=== PATIENT | male | born 1965 | race Caucasian/White ===

== ENCOUNTER 2024-02-16 16:40 | Inpatient (IN) | payer MEDICARE, MEDICAID ==
[~2024-02-16] VITALS: Ht 165.1 cm; Wt 84.6 kg
[~2024-02-16 16:40] MED LIST: SEVE800T8 MT
[2024-02-16 17:30] VITALS: BP 125/49; PULSE 73; RESP 17; TEMP 98.1
[2024-02-16] MEDS ORDERED: MAGNESIUM HYDROXIDE 400MG/5ML 30ML UDC PO PRN (18:30)
[2024-02-16] MEDS ORDERED: CLONIDINE 0.1MG TABLET PO PRN (18:30)
[2024-02-16] MEDS ORDERED: MAGNESIUM/ALUMINUM HYDROXIDE/SIMETHICONE 30ML UDC PO PRN (18:30)
[2024-02-16] MEDS ORDERED: NALOXONE HCL 0.4MG/ML VIAL IV PRN (19:30)
[2024-02-16] MEDS: HYDROCODONE/ACETAMINOPHEN 10/325MG TABLET PO PRN (19:47)
[2024-02-16 20:00] VITALS: BP 146/58; PULSE 72; PULSE 75; RESP 17; RESP 18; TEMP 100.4; TEMP 100.8
[2024-02-16] MEDS: BLOOD SUGAR DIAGNOSTIC STRIP TEST SCH (20:11)
[2024-02-16] MEDS: AMLODIPINE 2.5MG TABLET PO SCH (21:05)
[2024-02-16] MEDS: ATORVASTATIN CALCIUM 40MG TABLET PO SCH (21:05)
[2024-02-16] MEDS: INSULIN GLARGINE 100 UNITS/ML SUBCUT SCH (21:23)
[2024-02-16] MEDS: INSULIN LISPRO 100 UNITS/ML SUBCUT SCH (21:23)
[2024-02-16] MEDS: PIPERACILLIN/TAZO 3.375G/50ML 50 ML IV SCH (21:54)
[2024-02-16] MEDS: GUAIFENESIN-DM 200MG-20MG/10ML UDC PO PRN (23:33)
[2024-02-17] VITALS (7 sets, daily range): BP systolic 144–162; BP diastolic 54–75; PULSE 78–84; RESP 16–20; TEMP 96.9–99.1
[2024-02-17] MEDS: ACETAMINOPHEN 325MG TABLET PO PRN (02:06)
[2024-02-17] MEDS: ONDANSETRON HCL 4MG/2ML INJ IV PRN (06:37)
[2024-02-17 07:25] LABS: BASOPHILS % 0.7 % (0.0-2.0); HEMATOCRIT. 21.9 % (42.0-52.0); HEMOGLOBIN. 7.2 g/dL (14.0-18.0); LYMPHOCYTES % 9.1 % (20.0-50.0); MEAN CORPUSCULAR HEMOGLOBIN 28.3 pg (28.0-32.0); MEAN CORPUSCULAR VOLUME 85.6 fL (80.0-94.0); MEAN PLATELET VOLUME 7.5 fl (7.4-10.4); MONOCYTES % 5.6 % (2.0-8.0); NEUTROPHILS % 79.6 % (40.0-76.0); PLATELET 229 x1000/uL (130-400); RED BLOOD CELL COUNT 2.56 mill/uL (4.7-6.1); RED CELL DISTRIBUTION WIDTH 14.9 % (11.6-14.6); WHITE BLOOD COUNT 11.6 x1000/uL (4.5-11.0)
[2024-02-17 07:45] LABS: ALANINE AMINOTRANSFERASE 11 IU/L (10-49); ALBUMIN 3.4 g/dL (3.2-4.8); ASPARTATE AMINOTRANSFERASE 28 IU/L (<34); BILIRUBIN TOTAL 0.4 mg/dL (0.1-1.0); CALCIUM 8.4 mg/dL (8.7-10.4); CARBON DIOXIDE 25 mEq/L (21-32); CHLORIDE 91 mEq/L (98-107); GLUCOSE 127 mg/dL (70-105); POTASSIUM 4.9 mEq/L (3.5-5.1); PROTEIN TOTAL 5.8 g/dL (6.0-8.3); SODIUM 130 mEq/L (136-145); UREA NITROGEN BLOOD 51 mg/dL (9-23)
[2024-02-17 07:48] LABS: CREATININE 9.7 mg/dL (0.6-1.3)
[2024-02-17] MEDS: DOCUSATE SODIUM 100MG CAPSULE PO SCH (09:18)
[2024-02-17] MEDS: CALCIUM ACETATE 667MG CAPSULE PO SCH (09:18)
[2024-02-17] MEDS: FINASTERIDE 5MG TABLET PO SCH (09:19)
[2024-02-17] MEDS: LINAGLIPTIN 5MG TABLET PO SCH (09:19)
[2024-02-17] MEDS: FOLIC ACID/VITAMIN B COMP W-C TABLET PO SCH (09:19)
[2024-02-17] MEDS: LACTULOSE 20G/30ML UDC PO SCH (13:55)
[2024-02-17] MEDS: FAMOTIDINE 20MG TABLET PO SCH (21:00)
[2024-02-17] MEDS: HYDROCODONE/ACETAMINOPHEN 5/325MG TABLET PO PRN (22:29)
[2024-02-17] MEDS: EPOETIN ALFA 4000UNITS/ML VIAL SUBCUT SCH (22:32)
[2024-02-18 06:07] LABS: AMMONIA < 17 uMol/L (<32)
[2024-02-18 08:00] VITALS: BP 146/63; PULSE 91; RESP 17; TEMP 100
[2024-02-18 08:13] LABS: BASOPHILS % 0.7 % (0.0-2.0); EOSINOPHILS % 4.9 % (0.0-5.0); HEMATOCRIT. 23.1 % (42.0-52.0); HEMOGLOBIN. 7.7 g/dL (14.0-18.0); LYMPHOCYTES % 10.7 % (20.0-50.0); MEAN CORPUSCULAR HEMOGLOBIN 28.2 pg (28.0-32.0); MEAN CORPUSCULAR HGB CONC 33.1 g/dL (31.0-37.0); MEAN CORPUSCULAR VOLUME 85.2 fL (80.0-94.0); MEAN PLATELET VOLUME 7.3 fl (7.4-10.4); MONOCYTES % 5.6 % (2.0-8.0); NEUTROPHILS % 78.1 % (40.0-76.0); PLATELET 224 x1000/uL (130-400); RED BLOOD CELL COUNT 2.71 mill/uL (4.7-6.1); RED CELL DISTRIBUTION WIDTH 14.9 % (11.6-14.6)
[2024-02-18 08:44] LABS: ALANINE AMINOTRANSFERASE 10 IU/L (10-49); ALBUMIN 3.5 g/dL (3.2-4.8); ASPARTATE AMINOTRANSFERASE 36 IU/L (<34); BILIRUBIN TOTAL 0.4 mg/dL (0.1-1.0); CALCIUM 8.9 mg/dL (8.7-10.4); CARBON DIOXIDE 25 mEq/L (21-32); CHLORIDE 95 mEq/L (98-107); GLUCOSE 69 mg/dL (70-105); IRON 19 ug/dL (65-175); POTASSIUM 4.2 mEq/L (3.5-5.1); PROTEIN TOTAL 5.9 g/dL (6.0-8.3); SODIUM 134 mEq/L (136-145); THYROID STIMULATING HORMONE 2.84 uIU/mL (0.55-4.78); TOTAL IRON BINDING CAPACITY 354 ug/dl (250-425); UREA NITROGEN BLOOD 41 mg/dL (9-23)
[2024-02-18 08:49] LABS: CREATININE 8.8 mg/dL (0.6-1.3)
[2024-02-18 09:04] LABS: FERRITIN 1229 ng/mL (22-322); FOLIC ACID (FOLATE) SERUM 19.88 ng/mL (>5.38); VITAMIN B12 SERUM 1943 pg/mL (211-911)
[2024-02-18] MEDS: HYDROCORTISONE 1% CREAM 30GM TOP SCH (14:51)
[2024-02-18] MEDS: VANCOMYCIN 500MG/100ML IV NR (14:52)
[2024-02-18 19:46] VITALS: BP 151/62; PULSE 79; RESP 20; TEMP 97.9
[2024-02-18 22:00] VITALS: BP 152/73; PULSE 76
[2024-02-18 22:30] VITALS: BP 157/70; PULSE 79
[2024-02-18 22:32] VITALS: BP 157/70; PULSE 79; RESP 16; TEMP 98
[2024-02-19 07:58] VITALS: BP 145/58; PULSE 74; RESP 18; TEMP 98.4
[2024-02-19] MEDS: ERGOCALCIFEROL 50000UNITS CAPSULE PO SCH (16:00)
[2024-02-19 20:00] VITALS: BP 153/35; PULSE 77; RESP 18; TEMP 97.7
[2024-02-20] VITALS (10 sets, daily range): BP systolic 138–164; BP diastolic 46–73; PULSE 76–82; RESP 16–17; TEMP 97.3–97.8
[2024-02-20 05:48] LABS: BASOPHILS % 0.5 % (0.0-2.0); EOSINOPHILS % 7.7 % (0.0-5.0); HEMATOCRIT. 22.7 % (42.0-52.0); HEMOGLOBIN. 7.5 g/dL (14.0-18.0); LYMPHOCYTES % 13.1 % (20.0-50.0); MEAN CORPUSCULAR HEMOGLOBIN 28.8 pg (28.0-32.0); MEAN CORPUSCULAR HGB CONC 33.1 g/dL (31.0-37.0); MEAN CORPUSCULAR VOLUME 87.2 fL (80.0-94.0); MEAN PLATELET VOLUME 7.1 fl (7.4-10.4); NEUTROPHILS % 70.7 % (40.0-76.0); PLATELET 224 x1000/uL (130-400); RED BLOOD CELL COUNT 2.61 mill/uL (4.7-6.1); RED CELL DISTRIBUTION WIDTH 15.3 % (11.6-14.6); WHITE BLOOD COUNT 11.5 x1000/uL (4.5-11.0)
[2024-02-20 06:05] LABS: CALCIUM 8.6 mg/dL (8.7-10.4); POTASSIUM 4.4 mEq/L (3.5-5.1)
[2024-02-20 07:13] LABS: CREATININE 10.8 mg/dL (0.6-1.3)
[2024-02-20] MEDS: LOPERAMIDE HCL 2MG CAPSULE PO PRN (10:27)
[2024-02-20] MEDS: DEXTROSE 50% WATER 50ML SYRINGE IV PRN (11:44)
[2024-02-20] MEDS: AMLODIPINE 5MG TABLET PO SCH (21:50)
[2024-02-21 08:00] VITALS: BP 139/67; PULSE 83; RESP 20; TEMP 98.4
[2024-02-21 20:00] VITALS: BP 159/69; PULSE 83; RESP 20; TEMP 97.6
[2024-02-21] MEDS: INSULIN GLARGINE 100 UNITS/ML SUBCUT SCH (22:15)
[2024-02-22] VITALS (10 sets, daily range): BP systolic 139–167; BP diastolic 51–78; PULSE 74–89; RESP 18–22; TEMP 97.4–98.4
[2024-02-22] MEDS: HYDROCODONE/ACETAMINOPHEN 5/325MG TABLET PO NR (06:26)
[2024-02-22 08:34] LABS: BASOPHILS % 0.8 % (0.0-2.0); EOSINOPHILS % 7.2 % (0.0-5.0); HEMATOCRIT. 22.9 % (42.0-52.0); HEMOGLOBIN. 7.5 g/dL (14.0-18.0); LYMPHOCYTES % 14.6 % (20.0-50.0); MEAN CORPUSCULAR HEMOGLOBIN 28.2 pg (28.0-32.0); MEAN CORPUSCULAR VOLUME 85.5 fL (80.0-94.0); NEUTROPHILS % 69.4 % (40.0-76.0); PLATELET 191 x1000/uL (130-400); RED BLOOD CELL COUNT 2.68 mill/uL (4.7-6.1); WHITE BLOOD COUNT 10.9 x1000/uL (4.5-11.0)
[2024-02-22 08:49] LABS: CALCIUM 8.8 mg/dL (8.7-10.4); POTASSIUM 4.6 mEq/L (3.5-5.1)
[2024-02-22 08:51] LABS: CREATININE 10.5 mg/dL (0.6-1.3)
[2024-02-22] MEDS: VANCOMYCIN 500MG/100ML IV NR (17:58)
[2024-02-22] MEDS ORDERED: NALOXONE HCL 0.4MG/ML VIAL IV PRN (21:15)
[2024-02-22] MEDS: HYDROCODONE/ACETAMINOPHEN 5/325MG TABLET PO PRN (21:25)
[2024-02-23 08:00] VITALS: BP 140/60; PULSE 91; RESP 20; TEMP 98
[2024-02-23 12:00] VITALS: BP 130/51; PULSE 82; RESP 18; TEMP 98.8
[2024-02-24] VITALS (11 sets, daily range): BP systolic 127–161; BP diastolic 58–79; PULSE 78–85; RESP 16–22; TEMP 97.9–98.6
[2024-02-24 06:02] LABS: BASOPHILS % 0.8 % (0.0-2.0); EOSINOPHILS % 7.1 % (0.0-5.0); HEMATOCRIT. 23.5 % (42.0-52.0); HEMOGLOBIN. 7.8 g/dL (14.0-18.0); LYMPHOCYTES % 15.3 % (20.0-50.0); MEAN CORPUSCULAR HEMOGLOBIN 28.6 pg (28.0-32.0); MEAN CORPUSCULAR HGB CONC 33.1 g/dL (31.0-37.0); MEAN CORPUSCULAR VOLUME 86.4 fL (80.0-94.0); MONOCYTES % 7.1 % (2.0-8.0); NEUTROPHILS % 69.7 % (40.0-76.0); PLATELET 218 x1000/uL (130-400); RED BLOOD CELL COUNT 2.72 mill/uL (4.7-6.1); RED CELL DISTRIBUTION WIDTH 16.7 % (11.6-14.6); WHITE BLOOD COUNT 12.2 x1000/uL (4.5-11.0)
[2024-02-24 08:17] LABS: POTASSIUM 4.1 mEq/L (3.5-5.1)
[2024-02-24 08:41] LABS: CREATININE 9.6 mg/dL (0.6-1.3)
[2024-02-24] MEDS: INSULIN GLARGINE 100 UNITS/ML SUBCUT SCH (22:00)
[2024-02-25] MEDS: VANCOMYCIN 750MG/150ML IV NR (03:00)
[2024-02-25 06:52] LABS: BASOPHILS % 1.2 % (0.0-2.0); EOSINOPHILS % 7.4 % (0.0-5.0); HEMOGLOBIN. 8.6 g/dL (14.0-18.0); LYMPHOCYTES % 15.7 % (20.0-50.0); MEAN CORPUSCULAR HEMOGLOBIN 29.7 pg (28.0-32.0); MEAN CORPUSCULAR HGB CONC 34.2 g/dL (31.0-37.0); MEAN CORPUSCULAR VOLUME 86.9 fL (80.0-94.0); MONOCYTES % 8.1 % (2.0-8.0); NEUTROPHILS % 67.6 % (40.0-76.0); PLATELET 193 x1000/uL (130-400); RED BLOOD CELL COUNT 2.88 mill/uL (4.7-6.1); WHITE BLOOD COUNT 8.9 x1000/uL (4.5-11.0)
[2024-02-25 07:08] LABS: CALCIUM 9.2 mg/dL (8.7-10.4); POTASSIUM 4.3 mEq/L (3.5-5.1)
[2024-02-25 07:11] LABS: CREATININE 7.3 mg/dL (0.6-1.3)
[2024-02-25 08:00] VITALS: BP 140/55; PULSE 77; RESP 16; TEMP 98.1
[2024-02-25 20:00] VITALS: BP 143/62; PULSE 82; RESP 18; TEMP 99.9
[2024-02-26 06:09] LABS: BASOPHILS % 0.9 % (0.0-2.0); HEMATOCRIT. 22.4 % (42.0-52.0); HEMOGLOBIN. 7.3 g/dL (14.0-18.0); LYMPHOCYTES % 15.5 % (20.0-50.0); MEAN CORPUSCULAR HEMOGLOBIN 27.9 pg (28.0-32.0); MEAN CORPUSCULAR HGB CONC 32.4 g/dL (31.0-37.0); MEAN CORPUSCULAR VOLUME 86.2 fL (80.0-94.0); MEAN PLATELET VOLUME 7.2 fl (7.4-10.4); MONOCYTES % 8.7 % (2.0-8.0); NEUTROPHILS % 63.9 % (40.0-76.0); PLATELET 214 x1000/uL (130-400); RED CELL DISTRIBUTION WIDTH 17.9 % (11.6-14.6)
[2024-02-26 06:31] LABS: CALCIUM 9.1 mg/dL (8.7-10.4); POTASSIUM 4.2 mEq/L (3.5-5.1)
[2024-02-26 06:42] LABS: CREATININE 8.7 mg/dL (0.6-1.3)
[2024-02-26 07:54] VITALS: BP 133/56; PULSE 76; RESP 18; TEMP 98
[2024-02-26 19:40] VITALS: BP 145/70; PULSE 80; RESP 20; TEMP 97.2
[2024-02-27] VITALS (7 sets, daily range): BP systolic 135–166; BP diastolic 58–79; PULSE 75–79; RESP 18–20; TEMP 97.3–99
[2024-02-27 07:14] LABS: BASOPHILS % 1.2 % (0.0-2.0); EOSINOPHILS % 10.8 % (0.0-5.0); HEMATOCRIT. 22.3 % (42.0-52.0); HEMOGLOBIN. 7.4 g/dL (14.0-18.0); LYMPHOCYTES % 18.1 % (20.0-50.0); MEAN CORPUSCULAR HEMOGLOBIN 28.9 pg (28.0-32.0); MEAN CORPUSCULAR HGB CONC 33.4 g/dL (31.0-37.0); MEAN CORPUSCULAR VOLUME 86.5 fL (80.0-94.0); MEAN PLATELET VOLUME 7.1 fl (7.4-10.4); MONOCYTES % 8.7 % (2.0-8.0); NEUTROPHILS % 61.2 % (40.0-76.0); PLATELET 205 x1000/uL (130-400); RED BLOOD CELL COUNT 2.57 mill/uL (4.7-6.1); RED CELL DISTRIBUTION WIDTH 17.6 % (11.6-14.6); WHITE BLOOD COUNT 9.9 x1000/uL (4.5-11.0)
[2024-02-27 08:40] LABS: POTASSIUM 4.6 mEq/L (3.5-5.1); T4 FREE 0.88 ng/dL (0.89-1.76)
[2024-02-27 08:42] LABS: CREATININE 10.2 mg/dL (0.6-1.3)
[2024-02-28] VITALS: BP 160/73; PULSE 79; RESP 19
[2024-02-28 00:30] VITALS: BP 146/64; PULSE 80; RESP 19
[2024-02-28 01:00] VITALS: BP 153/69; PULSE 80; RESP 17
[2024-02-28 01:05] VITALS: BP 146/67; PULSE 78; RESP 17; TEMP 98
[2024-02-28] MEDS: EPOETIN ALFA 4000UNITS/ML VIAL SUBCUT SCH (02:35)
[2024-02-28 08:00] VITALS: BP 123/55; PULSE 78; RESP 20; TEMP 100.4
[2024-02-28] MEDS ORDERED: NALOXONE HCL 0.4MG/ML VIAL IV PRN (13:15)
[2024-02-28] MEDS: HYDROCODONE/ACETAMINOPHEN 5/325MG TABLET PO PRN (13:15)
[2024-02-28 20:00] VITALS: BP 147/60; PULSE 79; RESP 18; TEMP 98.2
[2024-02-28] MEDS: DIPHENHYDRAMINE 50MG/ML VIAL IV PRN (21:21)
[2024-02-29 07:00] LABS: BASOPHILS % 1.2 % (0.0-2.0); EOSINOPHILS % 11.5 % (0.0-5.0); HEMATOCRIT. 23.8 % (42.0-52.0); HEMOGLOBIN. 7.9 g/dL (14.0-18.0); LYMPHOCYTES % 17.9 % (20.0-50.0); MONOCYTES % 7.4 % (2.0-8.0); PLATELET 249 x1000/uL (130-400); RED BLOOD CELL COUNT 2.71 mill/uL (4.7-6.1); RED CELL DISTRIBUTION WIDTH 18.1 % (11.6-14.6); WHITE BLOOD COUNT 10.3 x1000/uL (4.5-11.0)
[2024-02-29 07:27] LABS: CALCIUM 9.5 mg/dL (8.7-10.4); POTASSIUM 4.5 mEq/L (3.5-5.1); T4 FREE 0.84 ng/dL (0.89-1.76)
[2024-02-29 07:34] LABS: CREATININE 8.6 mg/dL (0.6-1.3)
[2024-02-29 08:00] VITALS: BP 125/45; PULSE 79; RESP 18; TEMP 97.7
[2024-02-29] MEDS ORDERED: POLYMYXIN B SULFATE 500000 UNITS/VIAL ONE (08:30)
[2024-02-29] MEDS ORDERED: LIDOCAINE HCL 1% 20ML VIAL (Pyxis) INJ ONE ×2 (08:30→11:22)
[2024-02-29] MEDS ORDERED: BUPIVACAINE HCL/PF 0.5% (5MG/ML) 10ML ONE (08:53)
[2024-02-29] MEDS ORDERED: GENTAMICIN SULF 40MG/ML 2ML VIAL ONE (08:56)
[2024-02-29] MEDS ORDERED: BACITRACIN 14GM TUBE TOP ONE (08:56)
[2024-02-29] MEDS: MORPHINE SULFATE 4 MG/ML INJ (FOR IV/IM USE) IV NR (09:34)
[2024-02-29] MEDS ORDERED: PROPOFOL 200MG/20ML VIAL IV ONE (11:10)
[2024-02-29] MEDS ORDERED: MIDAZOLAM HCL 2 MG/2 ML VIAL ONE (11:13)
[2024-02-29] MEDS ORDERED: ONDANSETRON HCL 4MG/2ML INJ ONE (11:21)
[2024-02-29] MEDS ORDERED: CEFAZOLIN SODIUM 1000MG/VIAL ONE (11:21)
[2024-02-29] MEDS ORDERED: DEXAMETHASONE 4MG/ML 1ML VIAL ONE (11:21)
[2024-02-29] MEDS ORDERED: KETOROLAC 30MG/ML VIAL ONE (11:22)
[2024-02-29] MEDS ORDERED: FENTANYL CITRATE/PF 50MCG/ML 2ML VIAL ONE (11:22)
[2024-02-29] MEDS ORDERED: SUCCINYLCHOLINE CHLORIDE 200MG/10ML IV ONE (11:22)
[2024-02-29] MEDS ORDERED: MEPERIDINE HCL/PF 25MG/ML CPJ IV PRN (11:45)
[2024-02-29] MEDS ORDERED: ONDANSETRON HCL 4MG/2ML INJ IV PRN (11:45)
[2024-02-29] MEDS ORDERED: FENTANYL CITRATE/PF 50MCG/ML 2ML VIAL IV PRN (11:45)
[2024-02-29] MEDS ORDERED: HYDROMORPHONE HCL/PF 2MG/ML CPJ IV PRN (11:45)
[2024-03-01] VITALS (18 sets, daily range): BP systolic 108–159; BP diastolic 54–77; PULSE 70–88; RESP 15–20; TEMP 97.2–98.1
[2024-03-01] MEDS: LEVOTHYROXINE SODIUM 25MCG TABLET PO SCH (06:13)
[2024-03-01 07:29] LABS: BASOPHILS % 1.1 % (0.0-2.0); EOSINOPHILS % 0.2 % (0.0-5.0); LYMPHOCYTES % 23.3 % (20.0-50.0); MEAN CORPUSCULAR HEMOGLOBIN 29.1 pg (28.0-32.0); MEAN CORPUSCULAR HGB CONC 33.6 g/dL (31.0-37.0); MEAN CORPUSCULAR VOLUME 86.5 fL (80.0-94.0); MEAN PLATELET VOLUME 6.8 fl (7.4-10.4); MONOCYTES % 5.6 % (2.0-8.0); NEUTROPHILS % 69.8 % (40.0-76.0); PLATELET 227 x1000/uL (130-400); RED BLOOD CELL COUNT 2.39 mill/uL (4.7-6.1); RED CELL DISTRIBUTION WIDTH 17.9 % (11.6-14.6); WHITE BLOOD COUNT 6.8 x1000/uL (4.5-11.0)
[2024-03-01 07:46] LABS: CALCIUM 8.7 mg/dL (8.7-10.4); POTASSIUM 5.2 mEq/L (3.5-5.1)
[2024-03-01 09:07] LABS: HEMATOCRIT. 20.7 % (42.0-52.0)
[2024-03-01 09:10] LABS: FOLICLE STIMULATING HORMONE 10.7 mIU/mL (1.5-12.4); LUTEINIZING HORMONE 25.8 mIU/mL (1.7-8.6); PROLACTIN 19.5 ng/mL (3.6-25.2)
[2024-03-01 20:32] LABS: HEMATOCRIT 25.7 % (42.0-52.0)
[2024-03-02 08:00] VITALS: BP 138/59; PULSE 76; RESP 18; TEMP 97.9
[2024-03-02] MEDS: HYDROCODONE/ACETAMINOPHEN 5/325MG TABLET PO PRN (08:42)
[2024-03-02 20:00] VITALS: BP 137/54; PULSE 82; RESP 18; TEMP 98.1
[2024-03-03 08:00] VITALS: BP 144/50; PULSE 86; RESP 20; TEMP 98.6
[2024-03-03 08:20] VITALS: BP 144/50; PULSE 86; RESP 20; TEMP 98.6
[2024-03-03 19:51] VITALS: BP 145/66; PULSE 78; RESP 20; TEMP 97.3
[2024-03-04 06:00] LABS: BASOPHILS % 1.1 % (0.0-2.0); EOSINOPHILS % 9.4 % (0.0-5.0); HEMATOCRIT. 24.2 % (42.0-52.0); HEMOGLOBIN. 8.2 g/dL (14.0-18.0); LYMPHOCYTES % 25.2 % (20.0-50.0); MEAN CORPUSCULAR HEMOGLOBIN 29.8 pg (28.0-32.0); MEAN CORPUSCULAR HGB CONC 33.8 g/dL (31.0-37.0); MEAN PLATELET VOLUME 6.7 fl (7.4-10.4); MONOCYTES % 9.3 % (2.0-8.0); PLATELET 223 x1000/uL (130-400); RED BLOOD CELL COUNT 2.75 mill/uL (4.7-6.1); RED CELL DISTRIBUTION WIDTH 19.1 % (11.6-14.6); WHITE BLOOD COUNT 9.1 x1000/uL (4.5-11.0)
[2024-03-04 06:07] LABS: CALCIUM 8.7 mg/dL (8.7-10.4); POTASSIUM 4.6 mEq/L (3.5-5.1)
[2024-03-04 06:23] LABS: CREATININE 10.2 mg/dL (0.6-1.3)
[2024-03-04 08:00] VITALS: BP 125/49; PULSE 80; RESP 20; TEMP 97.9
[2024-03-04 10:51] VITALS: BP 125/49; PULSE 80; TEMP 97.9; O2SAT 96
[2024-03-04 12:00] VITALS: BP 149/56; PULSE 76; RESP 18; TEMP 97.9
== END 2024-03-04 17:30 | DRG 987 ==
PROVIDERS: ADMIT Physical Medicine & Rehabilitation Spinal Cord Injury Medicine; ATTEND Internal Medicine
PROC: 5A1D70Z Performance of Urinary Filtration, Intermittent, Less than 6 Hours Per Day (ICD-10-PCS; 2024-02-17)
PROC: 5A1D70Z Performance of Urinary Filtration, Intermittent, Less than 6 Hours Per Day (ICD-10-PCS; 2024-02-20)
PROC: 5A1D70Z Performance of Urinary Filtration, Intermittent, Less than 6 Hours Per Day (ICD-10-PCS; 2024-02-22)
PROC: 5A1D70Z Performance of Urinary Filtration, Intermittent, Less than 6 Hours Per Day (ICD-10-PCS; 2024-02-24)
PROC: 5A1D70Z Performance of Urinary Filtration, Intermittent, Less than 6 Hours Per Day (ICD-10-PCS; 2024-02-27)
PROC: 0QBN0ZZ Excision of Right Metatarsal, Open Approach (ICD-10-PCS; principal; 2024-02-29)
PROC: 30233N1 Transfusion of Nonautologous Red Blood Cells into Peripheral Vein, Percutaneous Approach (ICD-10-PCS; 2024-03-01)
PROC: 5A1D70Z Performance of Urinary Filtration, Intermittent, Less than 6 Hours Per Day (ICD-10-PCS; 2024-03-01)
DX: E11.52 Type 2 diabetes mellitus with diabetic peripheral angiopathy with gangrene (principal); A41.9 Sepsis, unspecified organism; N18.6 End stage renal disease; E87.1 Hypo-osmolality and hyponatremia; I38 Endocarditis, valve unspecified; I12.0 Hypertensive chronic kidney disease with stage 5 chronic kidney disease or end stage renal disease; D63.1 Anemia in chronic kidney disease; E11.22 Type 2 diabetes mellitus with diabetic chronic kidney disease; N40.0 Benign prostatic hyperplasia without lower urinary tract symptoms; E78.00 Pure hypercholesterolemia, unspecified; Z99.2 Dependence on renal dialysis; R26.9 Unspecified abnormalities of gait and mobility; E11.42 Type 2 diabetes mellitus with diabetic polyneuropathy; E55.9 Vitamin D deficiency, unspecified; E11.621 Type 2 diabetes mellitus with foot ulcer; E11.65 Type 2 diabetes mellitus with hyperglycemia; F32.A Depression, unspecified; F41.9 Anxiety disorder, unspecified; L97.519 Non-pressure chronic ulcer of other part of right foot with unspecified severity; M25.511 Pain in right shoulder; M25.512 Pain in left shoulder; R05.9 Cough, unspecified; R19.7 Diarrhea, unspecified; R11.0 Nausea; Z63.4 Disappearance and death of family member; Z79.4 Long term (current) use of insulin; Z79.84 Long term (current) use of oral hypoglycemic drugs; Z82.49 Family history of ischemic heart disease and other diseases of the circulatory system; Z83.3 Family history of diabetes mellitus; Z87.891 Personal history of nicotine dependence; Z91.81 History of falling; Z79.899 Other long term (current) drug therapy
CPT/HCPCS: 36415; 73502; 80048; 80053; 80202; 82140; 82306; 82533; 82607; 82728; 82746; 82962; 83001; 83002; 83036; 83540; 83550; 84134; 84146; 84402; 84403; 84439; 84443; 85014; 85018; 85025; 86376; 86850; 86900; 86920; 88304; 90935; 97110; 97116; 97162; 97166; 97530; 97535; 97542; J0330; J0690; J0885; J1100; J1200; J1580; J1815; J1885; J2250; J2270; J2405; J2543; J2704; J3010; J3370; J3490; J7040; P9016